=== PATIENT | male | born 1975 | race African-American/Black ===

== ENCOUNTER 2017-08-21 11:26 | Inpatient (IN) | payer MEDICAID ==
[~2017-08-21] VITALS: Ht 170.2 cm; Wt 80.7 kg
[2017-08-21] MEDS ORDERED: MIDAZOLAM HCL 2 MG/2 ML VIAL IV ONE (12:45)
[2017-08-21] MEDS ORDERED: CHLORDIAZEPOXIDE 25MG CAPSULE PO ONE ×2 (12:45→18:00)
[2017-08-21 12:51] LABS: BASOPHILS % 0.8 % (0.0-2.0); EOSINOPHILS % 0.1 % (0.0-5.0); HEMATOCRIT. 38.7 % (42.0-52.0); HEMOGLOBIN. 13.3 g/dL (14.0-18.0); LYMPHOCYTES % 10.5 % (20.0-50.0); MEAN CORPUSCULAR HEMOGLOBIN 33.3 pg (28.0-32.0); MEAN CORPUSCULAR VOLUME 96.8 fL (80.0-94.0); MONOCYTES % 5.4 % (2.0-8.0); NEUTROPHILS % 83.2 % (40.0-76.0); PLATELET 154 x1000/uL (130-400); RED CELL DISTRIBUTION WIDTH 13.8 % (11.6-14.6)
[2017-08-21 13:04] LABS: CARBON DIOXIDE 27 mEq/L (21-32); CHLORIDE 100 mEq/L (98-107); CREATINE KINASE 169 IU/L (39-308); ETHANOL BLOOD < 10 mg/dL; TROPONIN I < 0.02 ng/mL (0.00-0.04)
[2017-08-21] MEDS ORDERED: SODIUM CHLORIDE 0.9% 1,000 ML IV ONE (13:04)
[2017-08-21] MEDS ORDERED: LEVETIRACETAM 500MG PREMIX 100 ML IV ONE (13:15)
[2017-08-21 13:34] LABS: KETONES URINE TRACE (NEGATIVE); LEUKOCYTE ESTERASE URINE NEGATIVE (NEGATIVE); NITRITE URINE NEGATIVE (NEGATIVE); OCCULT BLOOD URINE 1+ (NEGATIVE); PH URINE 6.5 (4.5-8.0); PROTEIN URINE 3+ (NEGATIVE); UROBILINOGEN URINE 0.2 E.U./dL (0.2-1.0)
[2017-08-21 13:36] LABS: CLARITY URINE SL HAZY (CLEAR); COLOR URINE YELLOW (YELLOW)
[2017-08-21 14:20] LABS: *AMPHETAMINES SCREEN URINE NEGATIVE (NEGATIVE); *BARBITURATES SCREEN URINE NEGATIVE (NEGATIVE); *BENZODIAZEPINES SCREEN URINE NEGATIVE (NEGATIVE); CANNABINOID URINE SCREEN PRESUMTIVE POSITIVE (NEGATIVE); METHADONE URINE SCREEN NEGATIVE (NEGATIVE); OPIATES URINE SCREEN NEGATIVE (NEGATIVE); PHENCYCLIDINE URINE SCREEN NEGATIVE (NEGATIVE)
[2017-08-21] MEDS ORDERED: MORPHINE SULFATE 2 MG/ML CPJ (NOT FOR IM USE) IV PRN (14:45)
[2017-08-21] MEDS ORDERED: NA PHOS,M-B/NA PHOS,DI-BA ENEMA 118ML PR PRN (14:45)
[2017-08-21] MEDS ORDERED: DIPHENHYDRAMINE 50MG/ML VIAL IV PRN (14:45)
[2017-08-21] MEDS ORDERED: DOCUSATE SODIUM 100MG CAPSULE PO PRN (14:45)
[2017-08-21] MEDS ORDERED: ACETAMINOPHEN 325MG TABLET PO PRN (14:45)
[2017-08-21] MEDS ORDERED: HYDROCODONE/ACETAMINOPHEN 5/325MG TABLET PO PRN (14:45)
[2017-08-21] MEDS ORDERED: ONDANSETRON HCL 4MG/2ML VIAL IV PRN (14:45)
[2017-08-21] MEDS ORDERED: GUAIFENESIN 200MG/10ML SUGAR FREE UDC PO PRN (14:45)
[2017-08-21] MEDS ORDERED: IPRATROPIUM/ALBUTEROL 0.5-3(2.5)MG/3ML NEB INH PRN (14:45)
[2017-08-21] MEDS ORDERED: CLONIDINE 0.1MG TABLET PO PRN (14:45)
[2017-08-21] MEDS ORDERED: MAGNESIUM/ALUMINUM HYDROXIDE/SIMETHICONE 30ML UDC PO PRN (14:45)
[2017-08-21 15:07] LABS: *COCAINE SCREEN URINE NEGATIVE (NEGATIVE)
[2017-08-21] MEDS ORDERED: LORAZEPAM 0.5MG TABLET PO PRN (16:30)
[2017-08-21 22:00] VITALS: BP 139/77
[2017-08-22] VITALS: BP 143/93
[2017-08-22] MEDS: SODIUM CHLORIDE 0.45% 1,000 ML IV SCH ×2 (01:21→15:53)
[2017-08-22 04:00] VITALS: BP 154/96
[2017-08-22 08:00] VITALS: BP 145/90
[2017-08-22] MEDS: ENOXAPARIN 40MG/0.4ML SYR SUBCUT SCH (08:52)
[2017-08-22] MEDS: ASPIRIN 81MG EC TABLET PO SCH (08:52)
[2017-08-22] MEDS ORDERED: INFLUENZA VIRUS VACCINE 0.5ML SYR IM ONE (10:00)
[2017-08-22] MEDS ORDERED: PNEUMOCOCCAL 23-VAL P-SAC VAC 0.5 ML IM ONE (11:00)
[2017-08-22] MEDS ORDERED: PHENYTOIN SODIUM EXTENDED 100MG CAPSULE PO NR (16:15)
[2017-08-22] MEDS: FOLIC ACID/VITAMIN B COMP W-C TABLET PO SCH (16:43)
[2017-08-22] MEDS: THIAMINE HCL 100MG TABLET PO SCH (16:43)
[2017-08-22 20:00] VITALS: BP 144/85
[2017-08-22] MEDS: PHENYTOIN SODIUM EXTENDED 100MG CAPSULE PO SCH (21:29)
[2017-08-22] MEDS: LORAZEPAM 1MG TABLET PO PRN (21:29)
[2017-08-23] VITALS: BP 136/88
[2017-08-23] MEDS: SODIUM CHLORIDE 0.45% 1,000 ML IV SCH ×2 (02:37→15:18)
[2017-08-23] MEDS: LORAZEPAM 1MG TABLET PO PRN ×4 (02:38→17:38)
[2017-08-23] MEDS: PHENYTOIN SODIUM EXTENDED 100MG CAPSULE PO SCH ×3 (06:00→21:30)
[2017-08-23] MEDS ORDERED: CHLORDIAZEPOXIDE 25MG CAPSULE PO PRN ×2 (07:00)
[2017-08-23 08:00] VITALS: BP 135/88
[2017-08-23] MEDS: ASPIRIN 81MG EC TABLET PO SCH (08:16)
[2017-08-23] MEDS: THIAMINE HCL 100MG TABLET PO SCH (08:16)
[2017-08-23] MEDS: FOLIC ACID/VITAMIN B COMP W-C TABLET PO SCH (08:16)
[2017-08-23] MEDS: ENOXAPARIN 40MG/0.4ML SYR SUBCUT SCH (08:16)
[2017-08-23] MEDS ORDERED: HALOPERIDOL LACTATE 5MG/ML VIAL IM SCH (10:00)
[2017-08-23] MEDS ORDERED: HALOPERIDOL LACTATE 5MG/ML VIAL IM PRN (10:00)
[2017-08-23] MEDS: SULFAMETHOXAZOLE/TRIMETHOPRIM 800/160MG TABLET PO SCH ×2 (10:45→21:31)
[2017-08-23] MEDS: FOLIC ACID 1 MG, MVI, ADULT NO.1 10 ML, THIAMINE HCL 100 MG in DEXT 5%/0.45% NACL 1000M... IV SCH ×4 (10:45)
[2017-08-23] MEDS: CHLORDIAZEPOXIDE 25MG CAPSULE PO PRN ×2 (11:05→17:38)
[2017-08-23 12:00] VITALS: BP 145/85
[2017-08-23] MEDS ORDERED: LORAZEPAM 2MG/ML CPJ IV PRN ×2 (13:35→13:45)
[2017-08-23 16:00] VITALS: BP 140/90
[2017-08-23 20:00] VITALS: BP 144/83
[2017-08-24] VITALS: BP 125/80
[2017-08-24 04:00] VITALS: BP 135/83
[2017-08-24] MEDS: SODIUM CHLORIDE 0.45% 1,000 ML IV SCH (05:39)
[2017-08-24] MEDS: PHENYTOIN SODIUM EXTENDED 100MG CAPSULE PO SCH (05:39)
[2017-08-24 07:43] VITALS: BP 129/86
[2017-08-24] MEDS: ASPIRIN 81MG EC TABLET PO SCH (09:51)
[2017-08-24] MEDS: ENOXAPARIN 40MG/0.4ML SYR SUBCUT SCH (09:51)
[2017-08-24] MEDS: SULFAMETHOXAZOLE/TRIMETHOPRIM 800/160MG TABLET PO SCH (09:51)
[2017-08-24 11:31] VITALS: BP 131/90
[2017-08-24] MEDS: FOLIC ACID 1 MG, MVI, ADULT NO.1 10 ML, THIAMINE HCL 100 MG in DEXT 5%/0.45% NACL 1000M... IV SCH ×4 (11:58)
[2017-08-24 13:13] VITALS: BP 131/80
== END 2017-08-24 13:58 | disposition home or self-care (01) | DRG 53 ==
LOC: ER 11:32 → 8WST 13:04 → ENRESERV 19:44
PROVIDERS: ADMIT Internal Medicine; ATTEND Internal Medicine
DX: G40.409 Other generalized epilepsy and epileptic syndromes, not intractable, without status epilepticus (principal); F10.231 Alcohol dependence with withdrawal delirium; E86.0 Dehydration; F17.210 Nicotine dependence, cigarettes, uncomplicated; R74.0 Nonspecific elevation of levels of transaminase and lactic acid dehydrogenase [LDH]; F12.10 Cannabis abuse, uncomplicated; Z59.0 Homelessness
CPT/HCPCS: 36415; 70450; 71010; 80053; 80305; 81001; 82550; 82553; 83690; 83735; 83880; 84443; 84484; 85025; 87040; 96361; 96374; 96375; 99291; G0482; J1630; J1650; J1953; J2060; J2250; J3411; J3490; J7030